=== PATIENT | female | born 1965 | race African-American/Black ===

== ENCOUNTER 2017-03-27 13:03 | Emergency (ER) | payer OTHER ==
[~2017-03-27] VITALS: Ht 160 cm; Wt 99.8 kg
[~2017-03-27 13:03] MED LIST: LISINOPRIL20 MG; NORCO 5-325 TA1 EACH PO
[2017-03-27] MEDS ORDERED: NORCO 5-325 TA1 EACH PO (14:04)
[2017-03-27 14:53] VITALS: BP 159/98
== END 2017-03-27 14:54 | disposition home or self-care (01) ==
LOC: ER 13:03
DX: M25.561 Pain in right knee (principal); I10 Essential (primary) hypertension; F17.210 Nicotine dependence, cigarettes, uncomplicated; W18.2XXA Fall in (into) shower or empty bathtub, initial encounter; Y93.89 Activity, other specified; Y92.89 Other specified places as the place of occurrence of the external cause; Y99.8 Other external cause status

== ENCOUNTER 2017-05-07 14:32 | Emergency (ER) | payer OTHER ==
[~2017-05-07] VITALS: Ht 152.4 cm; Wt 95.3 kg
[~2017-05-07 14:32] MED LIST changes: -LISINOPRIL20 MG; +LISINOPRIL20 MG PO
[2017-05-07] MEDS ORDERED: ASPIRIN325 PO (15:00)
[2017-05-07 15:26] LABS: ABSOLUTE NEUTROPHILS 7.6 thou/uL (1.4-8.2); BASOPHILS 0.5 % (0.0-2.0); EOSINOPHILS 1.5 % (0.0-3.0); HEMATOCRIT 44.8 % (37.0-47.0); LYMPHOCYTES 21.9 % (24.0-44.0); MCH 32.9 pg (26.0-34.0); MCHC 33.6 g/dL (28.0-37.0); MCV 97.8 fL (80.0-100.0); MONOCYTES 6.9 % (1.0-8.0); PLATELET COUNT 263 thou/uL (150-400); POLYS 69.2 % (36.0-66.0); RBC 4.58 mil/uL (4.20-5.00); RDW 13.3 % (10.5-14.5); WBC 10.9 thou/uL (4.0-11.0)
[2017-05-07 15:29] LABS: URINE BILIRUBIN NEGATIVE (Negative); URINE BLOOD TRACE (Negative); URINE COLOR YELLOW; URINE GLUCOSE-RANDOM* NEGATIVE (Negative); URINE KETONES NEGATIVE (Negative); URINE NITRITE NEGATIVE (Negative); URINE PROTEIN (DIPSTICK) NEGATIVE (Negative); URINE SPECIFIC GRAVITY 1.025 (1.003-1.035); URINE UROBILINOGEN 0.2 E.U./dl (0.2-1.0)
[2017-05-07 15:30] LABS: MANUAL DIFF NO
[2017-05-07 15:36] LABS: ANION GAP 9 mmol/L (7-16); BUN 9 mg/dL (7-18); CHLORIDE 108 mmol/L (98-107); CO2 27 mmol/L (21-32); CREATININE 0.6 mg/dL (0.6-1.0); GLUCOSE 102 mg/dL (74-106); POTASSIUM 3.8 mmol/L (3.5-5.1); SODIUM 144 mmol/L (136-145)
[2017-05-07 15:40] LABS: APTT 26.1 Seconds (24.5-32.8)
[2017-05-07 15:41] LABS: ALBUMIN 3.8 g/dL (3.4-5.0); ALKALINE PHOSPHATASE 72 U/L (46-116); DIRECT BILIRUBIN < 0.1 mg/dL (<0.1-0.3); SGOT 35 U/L (15-37); SGPT 36 U/L (30-65); TOTAL BILIRUBIN 0.5 mg/dL (<0.1-1.0); TOTAL PROTEIN 7.7 g/dL (6.4-8.2)
[2017-05-07 17:00] VITALS: BP 155/81
== END 2017-05-07 17:03 | disposition home or self-care (01) ==
LOC: ER 14:32
PROVIDERS: Nurse Practitioner
DX: K62.5 Hemorrhage of anus and rectum (principal); I10 Essential (primary) hypertension; F17.210 Nicotine dependence, cigarettes, uncomplicated; F10.99 Alcohol use, unspecified with unspecified alcohol-induced disorder

== ENCOUNTER 2020-02-04 23:29 | Inpatient (IN) | payer OTHER ==
[~2020-02-04] VITALS: Ht 160 cm; Wt 100.7 kg
[~2020-02-04 23:29] MED LIST changes: +ASPIRIN325 PO
[2020-02-04 23:31] VITALS: BP 125/100
[2020-02-05] VITALS (10 sets, daily range): BP systolic 116–145; BP diastolic 56–86
[2020-02-05 00:02] LABS: BASOPHILS 0.7 % (0.0-2.0); EOSINOPHILS 1.2 % (0.0-3.0); HEMATOCRIT 45.2 % (37.0-47.0); HEMOGLOBIN 14.8 gm/dL (12.0-15.0); LYMPHOCYTES 37.2 % (24.0-44.0); MCH 32.6 pg (26.0-34.0); MCHC 32.8 g/dL (28.0-37.0); MCV 99.4 fL (80.0-100.0); MONOCYTES 7.3 % (1.0-8.0); PLATELET COUNT 285 thou/uL (150-400); POLYS 53.6 % (36.0-66.0); RBC 4.55 mil/uL (4.20-5.00); RDW 13.5 % (10.5-14.5); WBC 11.2 thou/uL (4.0-11.0)
[2020-02-05 00:05] LABS: CALCIUM 8.3 mg/dL (8.5-10.1); CREATININE 0.7 mg/dL (0.6-1.0); MAGNESIUM 2.1 mg/dL (1.8-2.4); POTASSIUM 3.3 mmol/L (3.5-5.1)
[2020-02-05 00:10] LABS: APTT 28.2 Seconds (24.5-32.8)
--- NOTE | 2020-02-05 05:52 | NUR ---
PT ARRIVED AT THE UNIT AROUND 0115, PT IS A&OX4, WEAK, DENIES CHEST PAIN OR SOB, STILL AFIB RVR WITH A RATE OF 89, ON CARDIZEM DRIP AT 20, ADMISSION ASSESSMENT DONE AND CHARTED, CONTINUES ON CARDIZEM DRIP WITH NO COMPLAINS OF CHEST PAIN OR SOB AT THIS TIME, COMPLAINED OF NAUSEA, NAUSEA MEDICATION GIVEN PRN, LAYING IN BED WITH NO SIGNS OF DISTRESS AT THIS TIME, WILL CONTINUE TO MONITOR
[2020-02-05 08:02] LABS: CHOLESTEROL 185 mg/dL (<200); HDL CHOLESTEROL 48 mg/dL (>40); LDL CHOLESTEROL 110 mg/dL (<100); TC:HDL 3.9 Ratio (Not establshd); TRIGLYCERIDE 136 mg/dL (<150); VLDL 27 mg/dL (<40)
--- NOTE | 2020-02-05 11:27 | 2DMMODE ---
[facility] [address] [place] [address] 2 D/M-MODE ECHOCARDIOGRAM Name: NORMA LEUNG Room #: 218-P ADM IN M.R.#: [id number] Admission: 02/05/20 Attend Phys: Melissa Bejarano Discharge: Date of : 65 Report #: [id number] THIS REPORT FOR: cc: [facility] - Clinic physician unknown [facility] - Clinic physician unknown Didier Knott MD ~ APPROVED REPORT Study performed: 02/05/2020 09:22:51 EXAM: Comprehensive 2D, Doppler, and color-flow Echocardiogram Patient Location: Bedside Room #: 218 Status: routine BSA: 2.02 HR: 91 bpm BP: 136/76 mmHg Rhythm: Atrial Fibrillation Other Information Study Quality: Adequate Indications Diabetes Atrial Fibrillation Chest Pain Hypertension/HDD 2D Dimensions RVDd: 36.00 mm IVSd: 12.83 (7-11mm) LVOT Diam: 17.67 (18-24mm) LVDd: 36.87 mm PWd: 13.20 (7-11mm) Ascending Ao: 26.87 (22-36mm) LVDs: 26.35 (25-40mm) Aortic Root: 27.60 mm IVC: 24.00 mm Volumes Left Atrial Volume (Systole) Single Plane 4CH: 89.01 mL Single Plane 2CH: 56.58 mL LA ESV Index: 40.00 mL/m2 Aortic Valve AoV Peak Vickey.: 1.88 m/s AO Peak Gr.: 14.13 mmHg LVOT Max P.29 mmHg [facility] [address] [email or web address] [address] 2 D/M-MODE ECHOCARDIOGRAM Name: LEUNGNORMA M Room #: 218-P [facility] IN .R.#: [id number] Admission: 02/05/20 Attend Phys: Melissa Carter Discharge: Date of : 65 Report #: [id number] LVOT Max V: 1.35 m/s JUAN [place]IEGO Vmax: 1.76 cm2 Pulmonary Valve PV Peak Vickey.: 1.13 m/s PV Peak Gr.: 5.10 mmHg Tricuspid Valve TR Peak Vickey.: 2.75 m/s TR Peak Gr.: 30.41 mmHg PA Pressure: 40.00 mmHg Left Ventricle The left ventricle is normal size. Mild concentric left ventricular hypertrophy. Left ventricular systolic function is hyperdynamic. LVEF is 65-70%. This study is not technically sufficient to allow evaluation of the LV diastolic function due to atrial fibrillation. Right Ventricle The right ventricle is normal size. The right ventricular systolic function is normal. Atria Left atrium is dilated. The right atrium size is normal. Aortic Valve The aortic valve is normal in structure. The Aortic valve is sclerotic. No aortic regurgitation is present. There is no aortic valvular stenosis. Mitral Valve The mitral valve is normal in structure. Mild mitral regurgitation. No evidence of mitral valve stenosis. Tricuspid Valve The tricuspid valve is normal in structure. There is mild tricuspid regurgitation. Estimated PAP 40 mmHg. There is moderate pulmonary hypertension. Pulmonic Valve The pulmonary valve is normal in structure. There is no pulmonic valvular regurgitation. Great Vessels The aortic root is normal in size. IVC is dilated and collapses <50% with inspiration. [facility] [address] [email or web address] [address] 2 D/M-MODE ECHOCARDIOGRAM Name: NORMA LEUNG Sherif Room #: 218-P [facility] IN ..#: [id number] Admission: 02/05/20 Attend Phys: Melissa Carter Discharge: Date of : 65 Report #: [id number] Pericardium There is no pericardial effusion. <Conclusion> The left ventricle is normal size. LVEF is 65-70%. Left atrium is dilated. The aortic valve is normal in structure. The Aortic valve is sclerotic. The mitral valve is normal in structure. Mild mitral regurgitation. The tricuspid valve is normal in structure. There is mild tricuspid regurgitation. Estimated PAP 40 mmHg. There is moderate pulmonary hypertension. The pulmonary valve is normal in structure. There is no pericardial effusion. <ELECTRONICALLY SIGNED> By: Didier Knott MD 02/05/20 1126 [id number] [id number] Didier Knott MD /INF
--- NOTE | 2020-02-05 19:13 | NUR ---
PT CARE ASSUMED APPROXIMATLEY 0700. PT ASSESSMENTS CHARTED. PT MEDICATIONS CHARTED. PT REQUESTS NO PORK FOR MEALS. PT ON CARDIZEM DRIP AT 20 UNTIL 1600 CURRENTLY 10. PT UP WITH SBA TO TOILET.
[2020-02-05 19:35] LABS: CALCIUM 8.4 mg/dL (8.5-10.1); CREATININE 0.9 mg/dL (0.6-1.0); POTASSIUM 3.9 mmol/L (3.5-5.1)
[2020-02-06 00:15] VITALS: BP 139/63
[2020-02-06 01:07] LABS: GLYCOHEMOGLOBIN (HGB A1C) 5.7 % (4.8-5.6)
--- NOTE | 2020-02-06 01:36 | NUR ---
ASSUMED PT CARE AT CHANGE OF SHIFT, PT IS A&OX4, PLEASANT, CALLS APPROPRIATELY FOR NEEDS, DENIES CHEST PAIN, NAUSEA AND VOMITTING, COMPLAINED OF SOB WHILE AMBULATING TO THE BATHROOM, COMPLAINED OF DIARRHEAX1, CARDIZEM DRIP TITRATED TO 5ML/HR AT 2300 D/T HR BEING IN THE 50S, PT TOLERATING WELL, SR ON THE MONITOR, DENIES CONCERNS, WILL CONTINUE TO MONITOR
[2020-02-06 02:00] VITALS: BP 139/63
[2020-02-06 05:00] VITALS: BP 137/74
[2020-02-06 08:20] VITALS: BP 138/68
--- NOTE | 2020-02-06 08:40 | NUR ---
BRITTANI MADRIGAL INFORMED UR RN BY THIS AM PT'S PLAN IS OON WITH NO OON BENEFITS. [facility] ARE [facility], [facility] OR [facility]. TALKED WITH PT ABOUT HER INSURANCE BENEFITS AND NEED FOR TRANSFER TO IN [facility]WORK H[facility] IF TREATING PHYSICIANS FEEL NEEDS CONTINUED HOSPITAL CARE. PT'S FIRST CHOICE IS [facility], SECOND IS [facility], THEN ANY [facility]. UPDATED RN WILBERT, DR. BARRY, AND FAMILY WORKER.
[2020-02-06] MEDS ORDERED: DILTIAZEM 24HR120 M1 PO (09:30)
[2020-02-06 09:41] VITALS: BP 138/68
[2020-02-06] MEDS ORDERED: XARELTO20 MG PO (09:56)
--- NOTE | 2020-02-06 10:54 | NUR ---
PT CARE ASSUMED APPROX 0700. ASSESSMENT CHARTED. PT DENIES PAIN AND SOA. VSS. UP WITH STEADY GAIT. PT HAS REMAINED SR SINCE YESTERDAY. CV/EP APPROVED PT FOR DISCHARGE. DISCHARGE EDUCATION REVIEWED WITH PT AND HER DAUGHTER(ON THE PHONE). BOTH DENY QUESTIONS AND CONCERNS REGARDING POST HOSPITAL CARES, MEDS AND F/U. IV OUT, TELE BOX OFF. PT WAITING FOR HER DAUGHTER TO ARRIVE TO BE TAKEN OUT.
--- NOTE | 2020-02-06 11:24 | EKG ---
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: Crow GRAHAM : 1965 Requested By: Lea Wasserman Order Number: [id number] MD: Iain Bourgeois Measurements Intervals [place] Rate: 79 P: -14 WV: 149 QRS: 3 QRSD: 83 T: 21 QT: 415 QTc: 476 Interpretive Statements Sinus rhythm Left ventricular hypertrophy Anterior infarct, old Compared to ECG 02/04/2020 23:42:06 Myocardial infarct finding now present Atrial fibrillation no longer present Early repolarization no longer present Q waves no longer present Electronically Signed On 02-06-2020 11:23:02 CDT by Iain Bourgeois [email or web address] <ELECTRONICALLY SIGNED> By: Iain Bourgeois MD 02/06/20 1123 Iain Bourgeois MD /EPI
--- NOTE | 2020-02-08 12:24 | EKG ---
[facility] [place] [address] ELECTROCARDIOGRAM REPORT Name: KEON LEUNG Room #: 218-P [facility] IN M.R.#: [id number] Admission: 02/05/20 Attend Phys: Melissa Remington Darci Discharge: 02/06/20 Date of : 65 Report #: [id number] THIS REPORT FOR: cc: [facility] - Clinic physician unknown [facility] - Clinic physician unknown José Manuel [place] MD [facility] ~ THIS REPORT FOR: //name// [facility] ED Test Date: 2020-02-04 Test Time: 23:42:06 Pat Name: keon leung Department: Room: Gender: F 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 : 1965 Requested By: Order Number: [id number] MD: José Manuel [place] Measurements Intervals [place] Rate: 129 P: [place]: QRS: 18 QRSD: 71 T: QT: 288 QTc: 422 Interpretive Statements Atrial fibrillation LVH with secondary repolarization abnormality Anterior Q waves, possibly due to LVH No previous ECG available for comparison Electronically Signed On 02-05-2020 7:59:16 CDT by José Manuel [place] [email or web address] <ELECTRONICALLY SIGNED> By: José Manuel [place] MD, FACC 02/05/20 0759 [id number] José Manuel [place] MD, [facility] /EPI
--- NOTE | 2020-02-08 12:24 | EKG ---
[facility] [place] [address] ELECTROCARDIOGRAM REPORT Name: NORMA LEUNG Room #: 218-P [facility] IN M.R.#: [id number] Admission: 02/05/20 Attend Phys: Melissa Macedo Emmanina Discharge: 02/06/20 Date of : 65 Report #: [id number] THIS REPORT FOR: cc: [facility] - Clinic physician unknown [facility] - Clinic physician unknown José Manuel [place] MD [facility] ~ THIS REPORT FOR: //name// [facility] ED Test Date: 2020-02-04 Test Time: 23:35:52 Pat Name: NORMA LEUNG Department: Room: 218 Gender: F 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 : 1965 Requested By: Caitlyn Atwood Order Number: [id number] MD: José Manuel [place] Measurements Intervals [place] Rate: 201 P: [place]: QRS: 16 QRSD: 72 T: 213 QT: 227 QTc: 415 Interpretive Statements Atrial fibrillation with rapid V-rate LVH with secondary repolarization abnormality ST depression, probably rate related No previous ECG available for comparison Electronically Signed On 02-05-2020 7:58:56 CDT by José Manuel [place] [email or web address] <ELECTRONICALLY SIGNED> By: José Manuel [place] MD, [facility] 02/05/20 0758 [id number] José Manuel [place] MD, [facility] /EPI
--- NOTE | 2020-02-08 12:24 | EKG ---
[facility] [place] [address] ELECTROCARDIOGRAM REPORT Name: NORMA LEUNG Room #: 218-P [facility] IN M.R.#: [id number] Admission: 02/05/20 Attend Phys: Melissa Remington Darci Discharge: 02/06/20 Date of : 65 Report #: [id number] THIS REPORT FOR: cc: [facility] - Clinic physician unknown [facility] - Clinic physician unknown José Manuel [place] MD [facility] ~ THIS REPORT FOR: //name// [facility] ED Test Date: 2020-02-04 Test Time: 23:38:45 Pat Name: NORMA LEUNG Department: Room: 218 P Gender: F 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 : 1965 Requested By: Caitlyn Atwood Order Number: [id number] MD: José Manuel [place] Measurements Intervals [place] Rate: 113 P: PA: QRS: 19 QRSD: 75 T: 3 QT: 323 QTc: 443 Interpretive Statements Atrial fibrillation LVH with secondary repolarization abnormality Anterior Q waves, possibly due to LVH No previous ECG available for comparison Electronically Signed On 02-05-2020 7:59:06 CDT by José Manuel Stark [email or web address] <ELECTRONICALLY SIGNED> By: José Manuel Stark MD, [facility] 02/05/20 0759 2338 2338 José Manuel Stark MD, [facility] /EPI
== END 2020-02-06 11:37 | disposition home or self-care (01) | DRG 308 ==
LOC: ER 23:29 → EROBS 02-05 00:57 → 2N 02-05 00:57 → EROBS 02-05 01:42 → 2N 02-05 02:05
PROVIDERS: Emergency Medicine Emergency Medical Services; Nurse Practitioner Family; ADMIT Hospitalist
DX: I48.19 Other persistent atrial fibrillation (principal); J96.01 Acute respiratory failure with hypoxia; F10.20 Alcohol dependence, uncomplicated; Y90.2 Blood alcohol level of 40-59 mg/100 ml; F17.210 Nicotine dependence, cigarettes, uncomplicated; I10 Essential (primary) hypertension; E11.42 Type 2 diabetes mellitus with diabetic polyneuropathy; Z79.899 Other long term (current) drug therapy; Z79.01 Long term (current) use of anticoagulants
CPT/HCPCS: 10081